=== PATIENT | male | born 1975 | race Caucasian/White ===

== ENCOUNTER → 2017-04-06 15:19 | Outpatient (CLI) | payer OTHER | END | disposition home or self-care (01) | LOC: LAB 15:19 | DX: J11.1 Influenza due to unidentified influenza virus with other respiratory manifestations (principal) ==

== ENCOUNTER → 2017-04-06 | Outpatient (CLI) | payer OTHER ==
[~2017-04-06] VITALS: Ht 152.4 cm; Wt 111.1 kg
[~2017-04-06] MED LIST: BUCALSEP SPRAY30 ML MM; CATAFLAM50 MG PO; GILTUSS TR TAB1 EACH PO; ORPH100T PO; TESSALON PERLE100 MG PO; TUSNEL CAPSULE1 CAP PO; ZITHROMAX200 MG PO
== END | disposition home or self-care (01) ==
LOC: PPHC 11:49
DX: J98.8 Other specified respiratory disorders (principal); R53.1 Weakness

== ENCOUNTER 2017-09-04 17:12 | Emergency (ER) | payer OTHER ==
[~2017-09-04] VITALS: Ht 172.7 cm; Wt 108.0 kg
== END 2017-09-04 20:26 | disposition home or self-care (01) ==
LOC: ER 17:12
DX: M25.512 Pain in left shoulder (principal)

== ENCOUNTER 2017-11-06 06:29 | Emergency (ER) | payer OTHER ==
[~2017-11-06] VITALS: Ht 172.7 cm; Wt 107.5 kg
[2017-11-06] MEDS ORDERED: TOPROL XL25 MG PO (18:17)
== END 2017-11-06 10:48 | disposition home or self-care (01) ==
LOC: ER 06:29
DX: I16.0 Hypertensive urgency (principal); I10 Essential (primary) hypertension

== ENCOUNTER 2017-11-06 16:22 | Emergency (ER) | payer OTHER ==
[~2017-11-06] VITALS: Ht 172.7 cm; Wt 107.5 kg
[2017-11-06] MEDS ORDERED: TOPROL XL25 MG PO (18:17)
== END 2017-11-06 18:58 | disposition home or self-care (01) ==
LOC: ER 16:22
DX: R00.2 Palpitations (principal)

== ENCOUNTER 2018-06-23 05:04 | Emergency (ER) | payer OTHER ==
[~2018-06-23] VITALS: Ht 172.7 cm; Wt 90.7 kg
[~2018-06-23 05:04] MED LIST changes: +TOPROL XL25 MG PO
== END 2018-06-23 07:57 | disposition home or self-care (01) ==
LOC: ER 05:04
DX: R00.2 Palpitations (principal)

== ENCOUNTER → 2018-09-01 | Outpatient (CLI) | payer OTHER | END | disposition home or self-care (01) | LOC: RAD 11:11 | DX: J40 Bronchitis, not specified as acute or chronic (principal); R07.89 Other chest pain ==

== ENCOUNTER → 2018-09-22 | Outpatient (CLI) | payer OTHER | END | disposition home or self-care (01) | LOC: RAD 10:49 | DX: M54.2 Cervicalgia (principal); M25.561 Pain in right knee; M25.562 Pain in left knee ==

== ENCOUNTER 2020-05-27 07:49 | Outpatient (CLI) | payer OTHER | END 2020-05-27 08:03 | disposition home or self-care (01) | LOC: RAD 07:49 | PROVIDERS: ATTEND General Practice | DX: N50.89 Other specified disorders of the male genital organs (principal); M53.87 Other specified dorsopathies, lumbosacral region; M54.5 Low back pain; N50.819 Testicular pain, unspecified ==

== ENCOUNTER 2020-06-12 13:03 | Outpatient (CLI) | payer OTHER | END 2020-06-12 13:14 | disposition home or self-care (01) | LOC: MRI 13:03 | DX: M54.5 Low back pain (principal) | CPT/HCPCS: 72148 ==

== ENCOUNTER 2021-04-09 09:39 | Outpatient (CLI) | payer OTHER | END 2021-04-09 10:00 | disposition home or self-care (01) | LOC: SONOGRAMA 09:39 | PROVIDERS: ATTEND Urology | DX: R31.1 Benign essential microscopic hematuria (principal) ==

== ENCOUNTER → 2021-06-22 | Outpatient (CLI) | payer OTHER | END | disposition home or self-care (01) | LOC: RAD 13:13 | PROVIDERS: ATTEND Internal Medicine | DX: S29.001A Unspecified injury of muscle and tendon of front wall of thorax, initial encounter (principal) ==

== ENCOUNTER 2022-09-28 14:13 | Outpatient (CLI) | payer OTHER | END 2022-09-28 14:27 | disposition home or self-care (01) | LOC: SONOGRAMA 14:13 | PROVIDERS: ATTEND Urology | DX: R31.1 Benign essential microscopic hematuria (principal); R33.9 Retention of urine, unspecified ==

== ENCOUNTER 2023-03-01 08:10 | Outpatient (CLI) | payer OTHER | END 2023-03-01 08:18 | disposition home or self-care (01) | LOC: SONOGRAMA 08:10 | PROVIDERS: ATTEND Chiropractor | DX: M25.511 Pain in right shoulder (principal) ==

== ENCOUNTER 2024-01-05 08:10 | Outpatient (CLI) | payer OTHER | END 2024-01-05 08:19 | disposition home or self-care (01) | LOC: RAD 08:10 | DX: M99.07 Segmental and somatic dysfunction of upper extremity (principal); M25.572 Pain in left ankle and joints of left foot ==